=== PATIENT | female | born 1965 | race Caucasian/White ===

== ENCOUNTER 2022-07-11 00:17 | Emergency (ER) | payer MEDICAID ==
[~2022-07-11] VITALS: Ht 160 cm; Wt 54.5 kg
[~2022-07-11 00:17] MED LIST: ALBUTEROL IH; FERR325T29 PO; LEVO150T73 PO; MULT-620 PO
[2022-07-11] MEDS ORDERED: ondansetron 4mg rapidly disintigrating tab PO STA (00:35)
[2022-07-11] MEDS ORDERED: methylPREDNISolone sod succ 125mg/2ml vial IV ONE (00:45)
[2022-07-11] MEDS ORDERED: normal saline 1000ML IV soln IVB ONE (00:45)
[2022-07-11] MEDS ORDERED: ipratropium 0.5 MG/2.5ML nebule IH ONE (00:45)
[2022-07-11] MEDS ORDERED: albuterol 2.5 MG/3 ML nebule CONTNEB PRN (00:45)
[2022-07-11] MEDS ORDERED: ondansetron/PF 4mg/2ml inj IV ONE (00:50)
[2022-07-11] MEDS ORDERED: azithromycin/NS 500mg/250ml 250 ML IV ONE (00:50)
--- NOTE | 2022-07-11 00:57 | NUR ---
RT WAS PAGED AT [id number]
[2022-07-11] MEDS ORDERED: acetaminophen 325mg tablet PO ONE (01:05)
--- NOTE | 2022-07-11 03:06 | NUR ---
Ultra sound guided IV Upper RA unsuccessful and so one started into her LUE which ended up blowing after saline started to flow. MD made aware She will adm po Prednisone Cancelling labs Pt very difficult stick even with IV ultrasound. Pt past IVDU
[2022-07-11] MEDS ORDERED: predniSONE 20 mg tablet PO ONE (03:10)
[2022-07-11] MEDS ORDERED: albuterol 2.5 MG/3 ML nebule NEB STA (03:14)
[2022-07-11] MEDS ORDERED: BECL7.3A INH (03:24)
[2022-07-11] MEDS ORDERED: PRED20TA PO (03:24)
[2022-07-11] MEDS ORDERED: ALBU90AE INH (03:24)
[2022-07-11 05:41] VITALS: BP 146/80
== END 2022-07-11 06:42 | disposition home or self-care (01) ==
LOC: ER 00:18
DX: J45.901 Unspecified asthma with (acute) exacerbation (principal); Z20.822 Contact with and (suspected) exposure to COVID-19; I10 Essential (primary) hypertension; J44.9 Chronic obstructive pulmonary disease, unspecified; E03.9 Hypothyroidism, unspecified; Z88.0 Allergy status to penicillin
CPT/HCPCS: 36415; 71045; 87040; 87502; 87503; 87635; 93005; 94640; 94644; 96360; 99285; C9803; J7030; J7512; 94760

== ENCOUNTER 2024-03-15 23:38 | Emergency (ER) | payer MEDICAID ==
[~2024-03-15] VITALS: Ht 157.5 cm; Wt 59.1 kg
[~2024-03-15 23:38] MED LIST changes: +ALBU90AE INH; +BECL7.3A INH
[2024-03-15 23:39] VITALS: TEMP 99.1
[2024-03-16] MEDS ORDERED: OXYcodone (OXYCONTIN) Ext Release 15 MG TAB.SR.12H PO ONE (00:15)
[2024-03-16] MEDS ORDERED: orphenadrine citrate 60mg/2ml inj. IM ONE (00:15)
[2024-03-16 00:56] LABS: BASOPHILS % (AUTO) 0.4 % (0-1); EOSINOPHILS # (AUTO) 0.1 X10'3 (0-0.9); EOSINOPHILS % (AUTO) 0.5 % (0-6); HEMATOCRIT 41.3 % (35.0-45.0); HEMOGLOBIN 14.3 g/dl (12.0-16.0); LYMPHOCYTES # (AUTO) 1.3 X10'3 (1.1-4.8); LYMPHOCYTES % (AUTO) 12.6 % (21-51); MEAN CORPUSCULAR HEMOGLOBIN 32.5 PG (27.0-31.0); MEAN CORPUSCULAR HGB CONC 34.6 g/dL (33.0-36.5); MEAN CORPUSCULAR VOLUME 94.1 FL (78-98); MEAN PLATELET VOLUME 7.9 FL (7.4-10.4); MONOCYTES # (AUTO) 0.5 X10'3 (0-0.9); MONOCYTES % (AUTO) 4.6 % (2-12); NEUTROPHILS # (AUTO) 8.4 X10'3 (1.8-7.7); NEUTROPHILS % (AUTO) 81.9 % (42-75); PLATELET COUNT 245 X10'3 (140-440); RED BLOOD COUNT 4.38 X10'6 (4.20-5.60); WHITE BLOOD COUNT 10.3 X10'3 (4.5-11.0)
[2024-03-16 01:12] LABS: ALANINE AMINOTRANSFERASE 25 U/L (12-78); ALBUMIN 4.1 G/DL (3.4-5.0); ALBUMIN/GLOBULIN RATIO 1.5 (1.1-1.5); ALKALINE PHOSPHATASE 80 IU/L (46-116); ANION GAP 12 (8-16); ASPARTATE AMINO TRANSFERASE 20 U/L (10-37); BILIRUBIN,TOTAL 0.3 MG/DL (0.1-1.0); BLOOD UREA NITROGEN 17 MG/DL (7-18); BUN/CREATININE RATIO 11.8 (10.0-20.0); CALCIUM 9.1 MG/DL (8.5-10.1); CHLORIDE 107 MMOL/L (99-107); CREATININE 1.44 MG/DL (0.40-0.90); GLUCOSE 136 MG/DL (70-104); LIPASE 84 U/L (16-77); POTASSIUM 3.3 MMOL/L (3.5-5.1); SODIUM 141 MMOL/L (135-145); TOTAL CARBON DIOXIDE 21.9 MMOL/L (24-32); TOTAL PROTEIN 6.9 G/DL (6.4-8.2); eCRCL 34 ML/MIN; eGFR 38 ML/MIN
[2024-03-16] MEDS: ondansetron/PF 4mg/2ml inj IV ONE (01:16)
[2024-03-16] MEDS: morphine 4 MG/ML inj SYRINge IV ONE (01:16)
[2024-03-16] MEDS: ketorolac trometh. 30mg/ml inj. IV ONE (02:35)
[2024-03-16] MEDS: normal saline 1000ml 1,000 ML IV ONE ×2 (03:00→05:25)
[2024-03-16] MEDS: acetaminophen 1,000mg/100ml IV 100 ML IV ONE (03:00)
[2024-03-16 03:58] LABS: BILIRUBIN,URINE NEGATIVE (Neg); CLARITY,URINE SLIGHTLY CLOUDY (Clear); COLOR,URINE YELLOW (Yellow); GLUCOSE, URINE NEGATIVE (Neg); KETONES,URINE TRACE mg/dl (Neg); LEUKOCYTE ESTERASE ,URINE TRACE (Neg); NITRITES, URINE NEGATIVE (Neg); OCCULT BLOOD,URINE LARGE (Neg); PH,URINE 5.5 (4.8-8.0); PROTEIN,URINE NEGATIVE (Neg); UROBILINOGEN,URINE 0.2 E.U/dL (0.2-1.0)
[2024-03-16 03:59] LABS: URINE HCG NEGATIVE (NEG)
[2024-03-16 04:00] LABS: UA COLLECTION TYPE CLN CATCH MIDSTREAM
[2024-03-16 04:04] LABS: BACTERIA,URINE 1+ /HPF (Neg); MUCUS STRANDS FEW /LPF (Neg); RBC,URINE TNTC /HPF (0-2); SQUAMOUS EPITHELIAL CELL,UR FEW /LPF (FEW); TRANSITIONAL EPI CELLS,URINE FEW /HPF
[2024-03-16 04:05] LABS: CAL OXALATE CRYSTALS FEW /HPF (NEGATIVE)
[2024-03-16] MEDS ORDERED: ONDA-245 PO (05:03)
[2024-03-16] MEDS ORDERED: HYDR-3965 PO (05:03)
[2024-03-16 05:39] VITALS: BP 123/82; PULSE 85; RESP 16; O2SAT 97
== END 2024-03-16 05:38 | disposition home or self-care (01) ==
LOC: ER 23:39
DX: N20.0 Calculus of kidney (principal); I10 Essential (primary) hypertension; J44.9 Chronic obstructive pulmonary disease, unspecified; E03.9 Hypothyroidism, unspecified; M19.90 Unspecified osteoarthritis, unspecified site; Z88.0 Allergy status to penicillin; Z79.899 Other long term (current) drug therapy; Z98.890 Other specified postprocedural states
CPT/HCPCS: 36415; 74176; 80053; 81001; 81025; 83605; 83690; 84145; 85025; 87040; 87088; 93005; 96374; 96375; 99285; J0131; J2270; J2405; J7030; 87077; 87186

== ENCOUNTER 2024-03-21 17:26 | Emergency (ER) | payer MEDICAID ==
[~2024-03-21] VITALS: Ht 157.5 cm; Wt 59.1 kg
[~2024-03-21 17:26] MED LIST changes: +HYDR-3965 PO; +ONDA-245 PO
[2024-03-21 17:55] VITALS: PULSE 93; TEMP 97.8
--- NOTE | 2024-03-21 18:35 | NUR ---
LAB ATTEMPTED TO STICK PT AND WAS UNSUCCESSFUL DUE TO PT BEING A HARD STICK. DEFER LABS TO [facility]
[2024-03-21 20:33] LABS: BASOPHILS # (AUTO) 0.1 X10'3 (0-0.2); BASOPHILS % (AUTO) 0.5 % (0-1); EOSINOPHILS # (AUTO) 0.2 X10'3 (0-0.9); EOSINOPHILS % (AUTO) 1.9 % (0-6); HEMATOCRIT 44.1 % (35.0-45.0); HEMOGLOBIN 14.8 g/dl (12.0-16.0); LYMPHOCYTES # (AUTO) 1.9 X10'3 (1.1-4.8); LYMPHOCYTES % (AUTO) 18.3 % (21-51); MEAN CORPUSCULAR HEMOGLOBIN 31.9 PG (27.0-31.0); MEAN CORPUSCULAR HGB CONC 33.5 g/dL (33.0-36.5); MEAN CORPUSCULAR VOLUME 95.1 FL (78-98); MEAN PLATELET VOLUME 7.9 FL (7.4-10.4); MONOCYTES # (AUTO) 0.6 X10'3 (0-0.9); MONOCYTES % (AUTO) 6.3 % (2-12); NEUTROPHILS # (AUTO) 7.4 X10'3 (1.8-7.7); PLATELET COUNT 287 X10'3 (140-440); RED BLOOD COUNT 4.63 X10'6 (4.20-5.60); RED CELL DISTRIBUTION WIDTH 12.2 % (11.5-14.5); WHITE BLOOD COUNT 10.2 X10'3 (4.5-11.0)
[2024-03-21 20:45] LABS: ALANINE AMINOTRANSFERASE 23 U/L (12-78); ALBUMIN 4.3 G/DL (3.4-5.0); ALBUMIN/GLOBULIN RATIO 1.3 (1.1-1.5); ALKALINE PHOSPHATASE 82 IU/L (46-116); ANION GAP 12 (8-16); ASPARTATE AMINO TRANSFERASE 21 U/L (10-37); BILIRUBIN,TOTAL 0.3 MG/DL (0.1-1.0); BLOOD UREA NITROGEN 15 MG/DL (7-18); BUN/CREATININE RATIO 11.8 (10.0-20.0); CALCIUM 9.2 MG/DL (8.5-10.1); CHLORIDE 105 MMOL/L (99-107); CREATININE 1.27 MG/DL (0.40-0.90); GLUCOSE 91 MG/DL (70-104); LIPASE 187 U/L (16-77); POTASSIUM 3.9 MMOL/L (3.5-5.1); SODIUM 137 MMOL/L (135-145); TOTAL CARBON DIOXIDE 20.5 MMOL/L (24-32); TOTAL PROTEIN 7.5 G/DL (6.4-8.2); eCRCL 39 ML/MIN; eGFR 43 ML/MIN
[2024-03-21 20:51] LABS: APTT 21 SECONDS (22-32); PROTHROMBIN TIME 10.8 SECONDS (9.0-12.0)
[2024-03-21] MEDS: metoclopramide 5 mg/ml inj IV ONE (21:14)
[2024-03-21] MEDS: diphenhydrAMINE 50 mg/ml inj IV ONE (21:14)
[2024-03-21] MEDS: ketorolac trometh 30MG/ML vial 30 MG/ML VIAL IV ONE (21:15)
[2024-03-21] MEDS: normal saline 1000ml 1,000 ML IV ONE (21:15)
[2024-03-21] MEDS ORDERED: HYDR-3965 PO (21:27)
[2024-03-21] MEDS ORDERED: ONDA-243 PO (21:27)
[2024-03-21] MEDS: HYDROcodone/acetaminophen 5mg/325mg tablet PO ONE (21:58)
[2024-03-21 22:05] VITALS: BP 145/89; RESP 16; O2SAT 98
== END 2024-03-21 22:06 | disposition home or self-care (01) ==
LOC: ER 17:27
DX: N13.30 Unspecified hydronephrosis (principal); N20.0 Calculus of kidney; I10 Essential (primary) hypertension; J44.9 Chronic obstructive pulmonary disease, unspecified; E03.9 Hypothyroidism, unspecified; M19.90 Unspecified osteoarthritis, unspecified site; Z88.0 Allergy status to penicillin; Z79.899 Other long term (current) drug therapy; Z79.2 Long term (current) use of antibiotics; Z98.890 Other specified postprocedural states
CPT/HCPCS: 36415; 74176; 80053; 83690; 85025; 85610; 85730; 96361; 96374; 96375; 99285; J1200; J1885; J2765; J7030